=== PATIENT | male | born 1990 | race Caucasian/White ===

== ENCOUNTER 2017-08-01 19:54 | Emergency (ER) | payer SELFPAY ==
[~2017-08-01] VITALS: Ht 172.7 cm; Wt 61.5 kg
[2017-08-01 20:42] VITALS: Ht 172.7 cm; Wt 61.5 kg
[2017-08-01 22:37] VITALS: BP 112/71
== END 2017-08-01 22:37 | disposition home or self-care (01) ==
LOC: ED 19:54
DX: S29.011A Strain of muscle and tendon of front wall of thorax, initial encounter (principal); S20.212A Contusion of left front wall of thorax, initial encounter; X58.XXXA Exposure to other specified factors, initial encounter; Y93.89 Activity, other specified; Y92.89 Other specified places as the place of occurrence of the external cause; Y99.8 Other external cause status